=== PATIENT | male | born 1990 | race Two or more races ===

== ENCOUNTER 2025-02-03 07:53 | Outpatient (CLI) | payer OTHER | END 2025-02-03 08:12 | disposition home or self-care (01) | LOC: SONOGRAMA 07:53 | DX: R10.9 Unspecified abdominal pain (principal); N50.811 Right testicular pain ==

== ENCOUNTER 2025-03-09 07:14 | Outpatient (CLI) | payer OTHER | END 2025-03-09 07:15 | disposition home or self-care (01) | LOC: TOM 07:14 | PROVIDERS: ATTEND Internal Medicine Hematology & Oncology | DX: L04.2 Acute lymphadenitis of upper limb (principal); C88.80 Other malignant immunoproliferative diseases not having achieved remission ==